=== PATIENT | male | born 1975 | race Caucasian/White ===

== ENCOUNTER 2017-05-10 12:57 | Day surgery (SDC) | payer OTHER ==
[2017-05-10] MEDS ORDERED: SOD CHLORIDE 0.9% 1,000 ML IV (13:30)
[2017-05-10] MEDS ORDERED: CEFAZOLIN 1 GM/50 ML (PMX) 50 ML IVPB (13:30)
[2017-05-10 13:52] LABS: ADD MAN DIFF? NO
[2017-05-10 13:54] LABS: WHITE BLOOD COUNT 6.7 10^3/ul (4.8-10.8)
[2017-05-10 13:54] LABS: BASOPHILS % 0.3 % (0.0-2.0); EOSINOPHILS # 0.1 10^3/ul (0.0-0.5); EOSINOPHILS % 1.4 % (0.0-7.0); HEMATOCRIT 41.6 % (42.0-52.0); HEMOGLOBIN 14.2 g/dl (14.0-18.0); LYMPHOCYTES # 1.7 10^3/ul (0.8-2.9); LYMPHOCYTES % 24.9 % (15.0-51.0); MEAN CORPUSCULAR HEMOGLOBIN 30.8 pg (29.0-33.0); MEAN CORPUSCULAR HGB CONC 34.1 g/dl (32.0-37.0); MEAN CORPUSCULAR VOLUME 90.2 fl (82.0-101.0); MONOCYTE # 0.6 10^3/ul (0.3-0.9); MONOCYTES % 8.7 % (0.0-11.0); NEUTROPHIL # 4.3 10^3/ul (1.6-7.5); NEUTROPHILS % 64.4 % (39.0-77.0); PLATELET COUNT 323 10^3/UL (140-415); RED BLOOD COUNT 4.61 10^6/ul (4.70-6.10); RED CELL DISTRIBUTION WIDTH 12.9 % (11.5-14.5)
[2017-05-10 14:14] LABS: INR 0.93; PARTIAL THROMBOPLASTIN TIME 28.1 Sec (25.0-35.0); PROTIME 12.5 Sec (11.9-14.9)
[2017-05-10 14:15] LABS: ALANINE AMINOTRANSFERASE 63 IU/L (13-69); ALBUMIN 4.7 g/dl (3.3-4.9); ALBUMIN/GLOBULIN RATIO 1.42; ALKALINE PHOSPHATASE 66 IU/L (42-121); ANION GAP 14 (8-16); ASPARTATE AMINO TRANSFERASE 38 IU/L (15-46); BILIRUBIN,INDIRECT 0.5 mg/dl (0-1.1); BILIRUBIN,TOTAL 0.5 mg/dl (0.2-1.3); CARBON DIOXIDE 26 mmol/L (21-31); CHLORIDE 104 mmol/L (97-110); GLUCOSE 102 mg/dl (70-220)
[2017-05-10 14:17] LABS: BLOOD UREA NITROGEN 12 mg/dl (7-20); CALCIUM 9.5 mg/dl (8.4-10.2); CREATININE 0.77 mg/dl (0.61-1.24); POTASSIUM 3.8 mmol/L (3.5-5.1); SODIUM 140 mmol/L (135-144)
[2017-05-10] MEDS ORDERED: FENTAnyl 50 MCG/ML VIAL (14:44)
[2017-05-10] MEDS ORDERED: MIDAZOLAM 1 MG/ML 2 ML INJ (14:44)
[2017-05-10] MEDS: BACITRACIN 0.9 GM OINT (15:12)
[2017-05-10] MEDS: BUPIVACAINE 0.25% (MPF) 30 ML INJ (15:16)
[2017-05-10] MEDS ORDERED: ONDANSETRON 4 MG INJ (15:24)
[2017-05-10] MEDS ORDERED: PROPOFOL 20 ML (15:30)
[2017-05-10] MEDS ORDERED: LIDOCAINE 2% (SDV) 5 ML INJ (15:30)
[2017-05-10] MEDS ORDERED: CEFAZOLIN 1 GM INJ ×2 (15:30)
[2017-05-10] MEDS: HYDROCODONE/APAP (5/325) TAB PO (15:50)
== END 2017-05-10 17:13 | disposition home or self-care (01) ==
LOC: SDS 12:57
DX: D17.0 Benign lipomatous neoplasm of skin and subcutaneous tissue of head, face and neck (principal)
CPT/HCPCS: 14020; 80053; 85025; 85610; 85730; 88307